=== PATIENT | female | born 1975 | race Caucasian/White ===

== ENCOUNTER 2017-09-05 11:45 | Emergency (ER) | payer OTHER ==
[~2017-09-05] VITALS: Ht 160 cm; Wt 75.0 kg
[~2017-09-05 11:45] MED LIST: ALL DAY ALLG10 MG PO; AMOXICILLIN500 MG PO; AUGMENTIN875TAB PO; BACTRIM DS1 TAB PO; BENZONATATE200 MG PO; DIFLUCAN150 MG PO; ELIMITE5 % TOP; FENOFIBRATE48 MG PO; FLONASE NASAL50 MCG; LORTAB 1010 MG PO; MEDDOSEPAK PO; MUCINEX600 MG PO; MUPIROCIN2 % EX; PREDNISONE10 MG PO; PROAIR HFA IN; PROZAC20 MG PO; PROZAC40 MG PO; TESSALON PER100 MG PO; VENTOLIN HF1 IN; VISTARIL 50MG C50 M1 PO; ZITHROMAX250 MG PO
[2017-09-05] MEDS ORDERED: FENTANYL50 MCG/HR TD (12:17)
[2017-09-05] MEDS ORDERED: TRAZODONE50 MG PO (12:18)
[2017-09-05] MEDS ORDERED: PERCOCET 10/31 COMBO PO (12:18)
[2017-09-05] MEDS ORDERED: XANAX0.5 MG PO (12:18)
[2017-09-05 12:58] LABS: URINE BLOOD DIPSTICK LARGE (NEGATIVE); URINE GLUCOSE - DIPSTICK NEGATIVE (NEGATIVE); URINE KETONE TRACE mg/dL (NEGATIVE); URINE LEUK ESTERASE TRACE (NEGATIVE); URINE NITRITE - DIPSTICK NEGATIVE (Negative); URINE PH 5.5 (4.5-8.0); URINE PROTEIN - DIPSTICK 100 mg/dL (NEG-TRACE); URINE SPECIFIC GRAVITY >=1.030
[2017-09-05 13:01] LABS: URINE BILIRUBIN - DIPSTICK SMALL (NEGATIVE); URINE CLARITY BLOODY; URINE COLOR BROWN
[2017-09-05 13:15] LABS: URINE BACTERIA FEW hpf; URINE EPITHELIAL CELLS FEW EPI/hpf (0-FEW); URINE RBC TNTC RBC/hpf (0-5); URINE WBC 0-2 WBC/hpf (0-5)
[2017-09-05 13:15] LABS: HEMATOCRIT 38.7 % (37.0-47.0); HEMOGLOBIN 13.1 g/dl (12.0-16.0); IMMATURE GRANULOCYTES 0.4 % (0.0-1.0); MEAN CELL VOLUME 88.4 fL CALC (80.0-100.0); MEAN CORPUSCULAR HGB 29.9 pG CALC (26.0-32.0); MEAN CORPUSCULAR HGB CONC 33.9 g/L CALC (32.0-36.0); NEUT# 4.57 thou/uL (2.00-7.15); RED BLOOD COUNT 4.38 mill/uL (4.20-5.60); RED CELL DISTRI WIDTH 14.3 % (11.5-15.5)
[2017-09-05 13:26] LABS: ANION GAP 13 (6-22 (CALC)); BUN 15 mg/dL (7-17); BUN/CREATININE RATIO 23 (12-20 (CALC)); CALCIUM 9.2 mg/dL (8.4-10.2); CARBON DIOXIDE 26 mmol/l (22-30); CHLORIDE 106 mmol/l (95-108); CREATININE 0.7 mg/dL (0.5-1.0); GFR > 60 ML/MIN (>=60 (CALC)); GFR FOR AFR.AMER. > 60 ML/MIN (>=60 (CALC)); GLUCOSE 93 mg/dL (65-105); POTASSIUM 4.4 mmol/l (3.5-5.1); SODIUM 140 mmol/l (137-146)
[2017-09-05 15:26] VITALS: BP 101/63
== END 2017-09-05 15:26 | disposition home or self-care (01) | DRG 761 ==
LOC: ED 11:45
PROVIDERS: Family Medicine
DX: N93.9 Abnormal uterine and vaginal bleeding, unspecified (principal); R10.31 Right lower quadrant pain; R10.11 Right upper quadrant pain; R10.30 Lower abdominal pain, unspecified
CPT/HCPCS: Q9967

== ENCOUNTER 2017-09-11 10:16 | Day surgery (SDC) | payer OTHER ==
[~2017-09-11 10:16] MED LIST changes: +FENTANYL50 MCG/HR TD; +PERCOCET 10/31 COMBO PO; +TRAZODONE50 MG PO; +XANAX0.5 MG PO
[2017-09-11 10:52] LABS: HEMATOCRIT 40.8 % (37.0-47.0); HEMOGLOBIN 13.8 g/dl (12.0-16.0); IMMATURE GRANULOCYTES 0.3 % (0.0-1.0); MEAN CELL VOLUME 88.9 fL CALC (80.0-100.0); MEAN CORPUSCULAR HGB 30.1 pG CALC (26.0-32.0); MEAN CORPUSCULAR HGB CONC 33.8 g/L CALC (32.0-36.0); NEUT# 6.09 thou/uL (2.00-7.15); RED BLOOD COUNT 4.59 mill/uL (4.20-5.60); RED CELL DISTRI WIDTH 14.5 % (11.5-15.5)
[2017-09-11 10:55] LABS: COCAINE NEGATIVE (NEGATIVE); METHADONE NEGATIVE (NEGATIVE); TETRAHYDROCANNABIONOL POSITIVE (NEGATIVE)
[2017-09-11 10:56] LABS: BARBITURATES NEGATIVE (NEGATIVE); OXCYCODONE POSITIVE (NEGATIVE); TRICYLIC ANTIDEPRESSANTS NEGATIVE (NEGATIVE)
[2017-09-11 11:11] LABS: ALKALINE PHOSPHATASE 48 u/l (38-126); ANION GAP 12 (6-22 (CALC)); BILIRUBIN, TOTAL 0.2 mg/dL (0.0-1.4); BUN 13 mg/dL (7-17); BUN/CREATININE RATIO 20 (12-20 (CALC)); CALCIUM 9.8 mg/dL (8.4-10.2); CARBON DIOXIDE 25 mmol/l (22-30); CHLORIDE 108 mmol/l (95-108); CREATININE 0.6 mg/dL (0.5-1.0); GFR > 60 ML/MIN (>=60 (CALC)); GFR FOR AFR.AMER. > 60 ML/MIN (>=60 (CALC)); GLUCOSE 105 mg/dL (65-105); POTASSIUM 4.2 mmol/l (3.5-5.1); SGOT/AST 35 u/l (14-36); SGPT/ALT 41 u/l (9-52); SODIUM 140 mmol/l (137-146); TOTAL PROTEIN 6.6 g/dL (6.3-8.2)
[2017-09-11] MEDS ORDERED: NORCO1 TA1 PO (13:01)
[2017-09-11] MEDS ORDERED: PREMARIN0.3 MG PO (13:01)
[2017-09-11 13:51] VITALS: BP 118/73
== END 2017-09-11 13:49 | disposition home or self-care (01) | DRG 745 ==
LOC: ORM 10:16
PROC: 0UDB7ZZ Extraction of Endometrium, Via Natural or Artificial Opening (ICD-10-PCS; principal; 2017-09-11)
DX: N93.8 Other specified abnormal uterine and vaginal bleeding (principal); F17.210 Nicotine dependence, cigarettes, uncomplicated; N92.1 Excessive and frequent menstruation with irregular cycle; N85.8 Other specified noninflammatory disorders of uterus; N72 Inflammatory disease of cervix uteri
CPT/HCPCS: J1410

== ENCOUNTER 2018-05-03 17:53 | Emergency (ER) | payer OTHER ==
[~2018-05-03] VITALS: Ht 160 cm; Wt 80.0 kg
[~2018-05-03 17:53] MED LIST changes: +NORCO1 TA1 PO; +PREMARIN0.3 MG PO
[2018-05-03] MEDS ORDERED: OXYMORPHONE HYD10 MG PO (18:26)
[2018-05-03 19:31] VITALS: BP 120/80
== END 2018-05-03 19:44 | disposition home or self-care (01) ==
LOC: ED 17:53
DX: M79.642 Pain in left hand (principal); F17.210 Nicotine dependence, cigarettes, uncomplicated